=== PATIENT | female | born 1965 | race Caucasian/White ===

== ENCOUNTER 2017-07-12 04:47 | Emergency (ER) | payer SELFPAY ==
[~2017-07-12] VITALS: Ht 170.2 cm; Wt 67.1 kg
[2017-07-12 05:29] VITALS: BP 120/74
--- NOTE | 2017-07-12 06:08 | NUR ---
RADIOLOGY BEDSIDE FOR FOOT X-RAY
--- NOTE | 2017-07-12 06:17 | NUR ---
Patient discharged to home in stable condition. Written and verbal after care instructions given. Patient verbalizes understanding of instruction. VSS upon discharge. Pt ambulated with steady gait out of ER.
== END 2017-07-12 06:27 | disposition home or self-care (01) ==
LOC: ER 04:47
DX: S90.31XA Contusion of right foot, initial encounter (principal); Z88.0 Allergy status to penicillin; W20.8XXA Other cause of strike by thrown, projected or falling object, initial encounter; Y93.89 Activity, other specified; Y92.89 Other specified places as the place of occurrence of the external cause; Y99.8 Other external cause status; J45.909 Unspecified asthma, uncomplicated
CPT/HCPCS: 73630-TC; A4606; Z7610

== ENCOUNTER 2019-05-01 15:05 | Emergency (ER) | payer MEDICAID ==
[~2019-05-01] VITALS: Ht 167.6 cm; Wt 64.9 kg
--- NOTE | 2019-05-01 15:30 | NUR ---
WORSENING RIGHT KNEE PAIN,STS, SHE HAS ARTHRITIS SINCE SHE WAS 13. ON ROOM AIR, BREATHING EVENLY AND UNLABORED. KEPT COMFORTABLE, WILL CONTINUE TO MONITOR ACCORDINGLY.
[2019-05-01] MEDS ORDERED: KETOROLAC TROMETHAMINE INJ 60 MG/2 ML VIAL IM ONE ×2 (18:00→18:04)
[2019-05-01 18:57] VITALS: BP 139/79
--- NOTE | 2019-05-01 18:58 | NUR ---
Patient discharged to home in stable condition. Written and verbal after care instructions given. Patient verbalizes understanding of instruction.
== END 2019-05-01 18:58 | disposition home or self-care (01) ==
LOC: ER 15:11
DX: M25.562 Pain in left knee (principal); J45.909 Unspecified asthma, uncomplicated; F98.8 Other specified behavioral and emotional disorders with onset usually occurring in childhood and adolescence; M19.90 Unspecified osteoarthritis, unspecified site; Z88.0 Allergy status to penicillin; Z60.2 Problems related to living alone
CPT/HCPCS: 36415; 73564; 84550; 96372; 99284; J1885